=== PATIENT | male | born 1945 | race Caucasian/White ===

== ENCOUNTER → 2018-09-21 06:00 | Outpatient (CLI) | payer OTHER ==
[~2018-09-21] VITALS: Ht 172.7 cm; Wt 88.5 kg
[~2018-09-21 06:00] MED LIST: AMLODIPINE BESYL5 MG PO; AREDS; ASPIR 8181 MG PO; AVAPRO300 MG PO; DOXAZOSIN PO; FORTAMET1000 MG PO; GABAPENTIN600 MG PO; HYDROCHLOROTHIA25 MG PO; MESTINON60 M1 PO; METROPOLOL PO; NEPHRONEX-SL T1 EACH PO; OSTERA TABLET1 EACH PO; PEPCID20 MG PO; SYNTHROID88 MCG PO
== END | disposition home or self-care (01) ==
LOC: LAB 06:00 → SURH 09-29 08:00 → EDSTATUS 09-29 08:00 → SURH 09-29 11:15
DX: K22.0 Achalasia of cardia (principal); K44.9 Diaphragmatic hernia without obstruction or gangrene; Z01.810 Encounter for preprocedural cardiovascular examination